=== PATIENT | female | born 1995 | race Caucasian/White ===

== ENCOUNTER 2017-09-14 14:45 | Emergency (ER) | payer OTHER ==
[2017-09-14 14:56] VITALS: BMI 25.7
[2017-09-14 14:57] VITALS: BP 128/81; PULSE 99; RESP 18; TEMP 97.7; O2SAT 99
[2017-09-14 15:55] LABS: RBC URINE 4 /hpf (0-3); URINE BACTERIA RARE (<OCC); URINE BILIRUBIN NEGATIVE (NEGATIVE); URINE BLOOD NEGATIVE (NEGATIVE); URINE COLOR Yellow (YELLOW); URINE GLUCOSE (UA) NORMAL (Normal); URINE KETONE NEGATIVE (NEGATIVE); URINE LEUKOCYTE ESTERASE 2+ Leu/uL (Negative); URINE PROTEIN NEGATIVE (NEGATIVE); URINE UROBILINOGEN NORMAL mg/dL (0.2-1.0); WBC URINE 22 /hpf (0-5)
--- NOTE | 2017-09-14 16:03 | C.PDOC ---
History Of Present Illness 22 y/o female c/o dysuria and cheesy vaginal discharge for the last 3 days. Patient reports history of vulvovaginal candidiasis 1 year ago. Patient states she has protected sex with 1 partner. Denies fever, chills, nausea, vomiting, diarrhea, or other associated symptoms. Time Seen by Provider: 09/14/17 15:08 Chief Complaint (Nursing): Female Genitourinary History Per: Patient History/Exam Limitations: no limitations Onset/Duration Of Symptoms: Days Current Symptoms Are (Timing): Still Present Associated Symptoms: denies: Fever, Nausea, Vomiting, Diarrhea Abnormal Vaginal Bleeding: No Past Medical History Reviewed: Historical Data, Nursing Documentation, Vital Signs Vital Signs: Last Vital Signs Temp 97.7 F 09/14/17 14:56 Pulse 99 H 09/14/17 14:56 Resp 18 09/14/17 14:56 BP 128/81 09/14/17 14:56 Pulse Ox 99 09/14/17 16:03 Family History: States: Unknown Family Hx - Social History Hx Tobacco Use: No Hx Alcohol Use: No Hx Substance Use: No - Immunization History Hx Tetanus Toxoid Vaccination: Yes Hx Influenza Vaccination: Yes Hx Pneumococcal Vaccination: No Review Of Systems Except As Marked, All Systems Reviewed And Found Negative. Constitutional: Negative for: Fever, Chills Respiratory: Negative for: Cough, Shortness of Breath Gastrointestinal: Negative for: Nausea, Vomiting, Diarrhea Genitourinary: Positive for: Vaginal Discharge. Negative for: Dysuria, Hematuria, Vaginal Bleeding Skin: Negative for: Rash Physical Exam - Physical Exam Appears: Non-toxic, No Acute Distress Skin: Normal Color, Warm, Dry Head: Atraumatic, Normacephalic Oral Mucosa: Moist Chest: Symmetrical Cardiovascular: Rhythm Regular Respiratory: Normal Breath Sounds, No Rales, No Rhonchi, No Wheezing Gastrointestinal/Abdominal: Soft, No Tenderness, No Guarding, No Rebound Back: Normal Inspection Pelvic: Vaginal Discharge (cheesy, whitish discharge), No Cervical Motion Tenderness, No Adnexal Tenderness, Other (pelvic exam chaperoned by ALBERT Tarango) Extremity: Normal ROM, Capillary Refill (< 2 sec.) Extremity: Bilateral: Normal Color And Temperature Neurological/Psych: Oriented x3, Normal Speech, Normal Cognition ED Course And Treatment O2 Sat by Pulse Oximetry: 99 (RA) Pulse Ox Interpretation: Normal Progress Note: Treated with Macrobid, Diflucan. UA, UHCG, Chlamydia/GC ordered. Cultures ordered/sent to lab. Medical Decision Making Medical Decision Making: yeast infection, ? mild UTI low susp of GH/Chlamydia so NOT empirically treated- GC/Chlamydia sent. Disposition Doctor Will See Patient In The: Office Counseled Patient/Family Regarding: Studies Performed, Diagnosis - Disposition Referrals: [facility] [Outside] [facility] [Outside] Disposition: HOME/ ROUTINE Disposition Time: 16:02 Condition: GOOD Additional Instructions: Vaginal Candidiasis: you were given Diflucan 100 mg orally, which is a COMPLETE treatment. Symptoms should improve in 1-2 days UTI: mild symptoms Continue Macrobid 100 mg twice a day to complete 3 days of antibiotics Follow-up in our outpatient [facility] for further [facility]IF[facility] care YOu were NOT treated for GC/Chlamydia, but the tests were sent Follow-up is usually in about 2-3 days. Prescriptions: Nitrofurantoin Macrocrystals [Macrobid] 1 cap PO BID #5 Instructions: Urinary Tract Infection in Women (ED), Vulvovaginal Candidiasis ( ED) Forms: [employer] (Yi) - Clinical Impression Clinical Impression: Vulvovaginal candidiasis, UTI (urinary tract infection) - Scribe Statement The provider has reviewed the documentation as recorded by the Scribe SM All medical record entries made by the Scribe were at my direction and personally dictated by me. I have reviewed the chart and agree that the record accurately reflects my personal performance of the history, physical exam, medical decision making, and the department course for this patient. I have also personally directed, reviewed, and agree with the discharge instructions and disposition.
== END 2017-09-14 16:20 | disposition home or self-care (01) ==
LOC: C.ER 14:45
DX: B37.3 Candidiasis of vulva and vagina (principal); N39.0 Urinary tract infection, site not specified

== ENCOUNTER 2018-09-12 23:10 | Emergency (ER) | payer SELFPAY ==
[2018-09-12 23:10] VITALS: BMI 25.7
[2018-09-12 23:22] VITALS: BP 118/82; PULSE 84; RESP 20; TEMP 98; O2SAT 99
[2018-09-12 23:40] LABS: SQUAMOUS EPITHIAL 1 /hpf (0-5); URINE BACTERIA FEW (<OCC); URINE BILIRUBIN NEGATIVE (NEGATIVE); URINE BLOOD 3+ (NEGATIVE); URINE CLARITY Clear (Clear); URINE COLOR Yellow (YELLOW); URINE GLUCOSE (UA) NORMAL (Normal); URINE LEUKOCYTE ESTERASE 3+ Leu/uL (Negative); URINE PROTEIN NEGATIVE (NEGATIVE); URINE UROBILINOGEN NORMAL mg/dL (0.2-1.0); WBC CLUMPS FEW /hpf
[2018-09-12 23:41] LABS: HCG,QUALITATIVE URINE NEGATIVE (NEGATIVE)
--- NOTE | 2018-09-13 00:20 | C.PDOC ---
History Of Present Illness 23 year old female presents to the ER with a complaint of dysuria and lower back pain that began today. Patient states she started taking amoxicillin today that was given to her by her mother. Denies PMHx of UTI, vaginal bleeding, vaginal discharge, abdominal pain, fever, or hematuria. Time Seen by Provider: 09/12/18 23:48 Chief Complaint (Nursing): Female Genitourinary History Per: Patient History/Exam Limitations: no limitations Onset/Duration Of Symptoms: Hrs Current Symptoms Are (Timing): Still Present Quality Of Discomfort: Unable To Describe Associated Symptoms: Back Pain, Urinary Symptoms (Dysuria, no hematuria). denies: Fever, Other (Vaginal discharge, abdominal pain) Alleviating Factors: None Recent travel outside of the [place]: No Abnormal Vaginal Bleeding: No Past Medical History Reviewed: Historical Data, Nursing Documentation, Vital Signs Vital Signs: Last Vital Signs Temp 98.0 F 09/12/18 23:19 Pulse 84 09/12/18 23:19 Resp 20 09/12/18 23:19 BP 118/82 09/12/18 23:19 Pulse Ox 99 09/12/18 23:19 Family History: States: Unknown Family Hx - Social History Hx Tobacco Use: No Hx Alcohol Use: No Hx Substance Use: No - Immunization History Hx Tetanus Toxoid Vaccination: Yes Hx Influenza Vaccination: No Hx Pneumococcal Vaccination: No Review Of Systems Constitutional: Negative for: Fever, Chills Gastrointestinal: Negative for: Abdominal Pain Genitourinary: Positive for: Dysuria. Negative for: Hematuria, Vaginal Discharge, Vaginal Bleeding Musculoskeletal: Positive for: Back Pain (lower) Physical Exam - Physical Exam Appears: Non-toxic Skin: Normal Color, Warm, Dry Head: Atraumatic, Normacephalic Eye(s): bilateral: Normal Inspection Oral Mucosa: Moist Gastrointestinal/Abdominal: Soft, No Tenderness Back: No CVA Tenderness Neurological/Psych: Oriented x3, Normal Speech ED Course And Treatment O2 Sat by Pulse Oximetry: 99 (room air) Pulse Ox Interpretation: Normal Progress Note: Urinalysis ordered, results were positive for UTI. Patient started on macrobid and pyridium and advised to follow up with PMD for further evaluation. Disposition Counseled Patient/Family Regarding: Diagnosis, Need For Followup, Rx Given - Disposition Referrals: Esme Whitaker DO [[facility]] - Disposition: HOME/ ROUTINE Disposition Time: 00:18 Condition: STABLE Additional Instructions: Increase PO fluids Take medications as prescribed Follow up with PCP Return to ER if worse Prescriptions: Ibuprofen [Motrin] 600 mg PO Q6H #20 tab Nitrofurantoin Macrocrystals [Macrobid] 1 cap PO BID #14 cap Phenazopyridine HCl [Pyridium] 100 mg PO TID #6 tab Instructions: Urinary Tract Infection, Adult (DC) Forms: [employer] Text (Ecuadorean) - Clinical Impression Clinical Impression: Urinary tract infection - 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 - Scribe Statement The provider has reviewed the documentation as recorded by the Scribe Edgardo Farias All medical record entries made by the Desireibkatheryn were at my direction and personally dictated by me. I have reviewed the chart and agree that the record accurately reflects my personal performance of the history, physical exam, medical decision making, and the department course for this patient. I have also personally directed, reviewed, and agree with the discharge instructions and disposition.
== END 2018-09-13 00:33 | disposition home or self-care (01) ==
LOC: C.ER 23:10
DX: N39.0 Urinary tract infection, site not specified (principal)